=== PATIENT | male | born 1980 | race Caucasian/White ===

== ENCOUNTER 2018-04-01 12:40 | Emergency (ER) | payer OTHER ==
[~2018-04-01] VITALS: Ht 185.4 cm; Wt 70.3 kg
[2018-04-01 12:45] VITALS: BP 110/80
[2018-04-01] MEDS ORDERED: ADDERALL 30 MG30 MG PO (12:51)
[2018-04-01] MEDS ORDERED: XANAX 0.5 MG0.5 MG PO (12:51)
[2018-04-01 13:06] LABS: HEMATOCRIT 48.8 % (42.0-52.0); HEMOGLOBIN 16.2 gm/dL (14.0-18.0); MCH 30.8 pg (26.0-34.0); MCHC 33.1 g/dL (28.0-37.0); MPV 9.3 fl. (7.2-11.1); RBC 5.24 mil/uL (4.50-6.00); RDW-CV 13.5 % (10.5-14.5); WBC 6.3 thou/uL (4.0-11.0)
[2018-04-01 13:13] LABS: CALCIUM 8.9 mg/dL (8.5-10.1); CREATININE 0.9 mg/dL (0.6-1.3); POTASSIUM 4.6 mmol/L (3.5-5.1)
[2018-04-01 13:18] LABS: ALBUMIN 3.7 g/dL (3.4-5.0); TOTAL BILIRUBIN 0.3 mg/dL (<0.1-1.0); TOTAL PROTEIN 7.3 g/dL (6.4-8.2)
[2018-04-01 13:25] LABS: ACETAMINOPHEN < 2 ug/mL (10-30); ALCOHOL < 10 mg/dL (<10); SALICYLATE < 2.8 mg/dL (2.8-20.0)
--- NOTE | 2018-04-01 13:45 | NUR ---
BELONGINGS GIVEN TO SECURITY
[2018-04-01 14:24] LABS: URINE BILIRUBIN NEGATIVE (Negative); URINE BLOOD NEGATIVE (Negative); URINE CLARITY CLEAR; URINE COLOR YELLOW; URINE GLUCOSE-RANDOM NEGATIVE (Negative); URINE KETONES NEGATIVE (Negative); URINE LEUKOCYTES NEGATIVE (Negative); URINE NITRITE NEGATIVE (Negative); URINE PROTEIN NEGATIVE (Negative); URINE SPECIFIC GRAVITY <= 1.005 (1.005-1.030); URINE UROBILINOGEN 0.2 E.U./dl (0.2-1.0)
[2018-04-01 16:44] LABS: AMP/METHAMP Negative (Negative); BARBITURATES Negative (Negative); BENZODIAZEPINES POSITIVE (Negative); COCAINE Negative (Negative); METHADONE Negative (Negative); OPIATES Negative (Negative); PCP Negative (Negative); THC Negative (Negative)
--- NOTE | 2018-04-01 17:04 | EKG ---
[place] [address] ELECTROCARDIOGRAM REPORT Name: LITO REYES V Room: [facility]#: [id number] Admission: 04/01/18 Attend Phys: Discharge: Date of : 78 Report #: [id number] THIS REPORT FOR: //name// [facility] ED Test Date: 2018-04-01 Test Time: 12:55:21 Pat Name: LITO REYES Department: Room: [facility] Gender: M [employer] Gat[employer]: ANKUR : 1980 Requested By: Aileen Mercado Order Number: [id number] MD: Ray Oshea Measurements Intervals [place] Rate: 83 P: 41 [place]: 151 QRS: 54 QRSD: 85 T: 50 QT: 384 QTc: 452 Interpretive Statements Sinus rhythm No previous ECG available for comparison Electronically Signed On 04-01-2018 17:03:47 NEUROSURGICAL PHYSICIAN ASSISTANT by Ray Oshea [email or web address] <ELECTRONICALLY SIGNED> By: Ray Oshea MD, [facility] 04/01/18 1703 1255 1255 Ray Oshea MD, FACC /EPI
--- NOTE | 2018-04-01 17:31 | NUR ---
[facility] CONTACTED, SPOKE WITH WALLY ELENA
--- NOTE | 2018-04-01 18:41 | NUR ---
PT ATE DINNER TRAY
--- NOTE | 2018-04-01 19:51 | NUR ---
PT RIPPED OUT HIS IV PER PSYCH ASSESSER. RN BANDAGED AND CLEANED PT'S IV SITE. DR. TSAI AWARE
--- NOTE | 2018-04-01 20:10 | NUR ---
SPOKE WITH WALLY FROM [facility]. GAVE AN UPDATE ABOUT PT STATUS. THEY ARE NOT CONCERN WITH HIS CONDITION WORSENING. THEY STATE HE WILL ONLY IMPROVE. AWARE
[2018-04-01 20:43] VITALS: BP 123/81
== END 2018-04-01 20:43 | disposition home or self-care (01) ==
LOC: M.ERS 12:40 → M.TBA-ER 14:54 → M.ERS 14:54
PROVIDERS: Personal Emergency Response Attendant
DX: T42.4X2A Poisoning by benzodiazepines, intentional self-harm, initial encounter (principal); Z88.8 Allergy status to other drugs, medicaments and biological substances; Y92.89 Other specified places as the place of occurrence of the external cause